=== PATIENT | male | born 1955 | race Caucasian/White ===

== ENCOUNTER 2021-12-15 08:06 | Emergency (ER) | payer MEDICARE, SELFPAY ==
[2021-12-15 08:16] VITALS: BP 220/96; PULSE 80; RESP 16; TEMP 36.9; O2SAT 97; BMI 45.9
--- NOTE | 2021-12-15 08:24 | XR_ITS ---
WS: [id number] PORTABLE CHEST HISTORY: dyspnea/cough COMPARISON: None available. Lungs are clear and well expanded. No pleural effusion or pneumothorax. Cardiac size: Mild enlargement of the cardiac silhouette. Mediastinum/Aorta: Normal mediastinum. No osseous abnormality seen. XR/XR chest 1V portable [id number] IMPRESSION: Mild cardiomegaly. No pneumonia.
--- NOTE | 2021-12-15 08:30 | ECG_ITS ---
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 Measurements Intervals [place] Rate: 74 P: 53 AR: 177 QRS: 17 QRSD: 105 T: 31 QT: 393 QTc: 438 Interpretive Statements SINUS RHYTHM LOW QRS VOLTAGE IN PRECORDIAL LEADS [QRS DEFLECTION < 1.0 mV IN CHEST LEADS] ANTEROSEPTAL MYOCARDIAL INFARCTION , PROBABLY OLD [40+ ms Q WAVE IN V1-V4] No previous ECG available for comparison Electronically Signed On 12-15-2021 21:09:51 CDT by Margaux Barnes M.D. [id number]
[2021-12-15 08:50] LABS: Basophils % 0.3 %; Eosinophils # 0.2 10^3/uL (0.0-0.8); Eosinophils % 2.3 %; Hematocrit 38.8 % (42.0-52.0); Hemoglobin 13.3 g/dL (11.7-16.6); Lymphocytes # 1.9 10^3/uL (0.8-4.8); Lymphocytes % 29.1 %; Mean Corpuscular HGB Conc 34.3 g/dL (30.0-36.0); Mean Corpuscular Hemoglobin 29.6 pg (28.0-34.0); Mean Corpuscular Volume 86.4 fl (80-94); Monocytes # 0.5 10^3/uL (0.2-0.9); Monocytes % 7.7 %; Neutrophils # 3.87 10^3/uL (1.8-7.7); Nucleated Red Blood Cells % 0 %; Platelet Count 169 10^3/cmm (130-400); Red Blood Count 4.49 10^6/uL (4.1-5.3); Red Cell Distribution Width 12.5 % (12.1-15.1); White Blood Count 6.5 10^3/uL (4.0-10.0)
[2021-12-15 08:54] VITALS: BP 239/128; PULSE 74; RESP 16; O2SAT 95
[2021-12-15 09:14] LABS: Alanine Aminotransferase 40 U/L (0-41); Alkaline Phosphatase 74 IU/L (40-130); Anion Gap 15.8 (5-19); Aspartate Amino Transferase 27 U/L (0-40); Blood Urea Nitrogen 13 mg/dL (8-23); Calcium 8.6 mg/dL (8.5-10.5); Carbon Dioxide 26 mmol/L (22-29); Chloride 102 mmol/L (98-107); Glomerular Filtration Rate 112.5 mL/min (90-130); Glucose 170 mg/dL (65-115); Osmolality Calculated 294 mOsm/kg (285-295); Potassium 3.8 mmol/L (3.5-5.1); Sodium 140 mmol/L (136-145); Total Bilirubin 0.5 mg/dL (0.15-1.2)
--- NOTE | 2021-12-15 09:17 | CT_ITS ---
WS: [id number] CTA HEAD AND NECK TECHNIQUE: Contrast enhanced CTA of the head and neck with coronal and sagittal reformatted images an d maximum intensity projection (MIP) images. NASCET criteria utilized. CLINICAL INFORMATION: TIA COMPARISON: None. DLP: 630.[address] scans at [facility] use at least one of these dose optimization techniques: automated e xposure control; mA and/or kV adjustment per patient size (includes targeted exams where dose is matc hed to clinical indication); or iterative reconstruction. FINDINGS: Some images degraded by venous contamination. RIGHT: RIGHT common carotid artery appears patent. Mild atheromatous plaque RIGHT carotid bulb. No si gnificant RIGHT ICA stenosis. RIGHT ICA appears patent to the skull base. Tortuous RIGHT ICA at the s kull base. Cavernous carotid calcification. LEFT: LEFT common carotid artery is patent. Mild atheromatous plaque LEFT carotid bulb. No significan t LEFT ICA stenosis. LEFT ICA is patent to the skull base. Mild cavernous carotid calcification. Mild narrowing of the supraclinoid ICA which remains patent. INTRACRANIAL CTA: Vertebral artery origins not well visualized due to body habitus and beam hardening artifact. RIGHT d ominant vertebral artery. Tiny LEFT vertebral artery not well evaluated. RIGHT vertebral artery is pa tent to the vertebrobasilar junction. 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 Normal vascularity to the MISSILE INSPECTOR territ ory bilaterally. Both ICAs are patent at the skull base. Mild stenosis of cervical ICA which remains patent. Normal vascularity to the SILVANO and proximal MCA territories bilaterally. No flow-limiting intr acranial stenosis considering limitations. Mastoid air cells well aerated. Mucosal thickening LEFT maxillary sinus. Mild mucosal thickening ethm oid air cells. Cardiomegaly. Atelectasis in the lung apices. Calcified granulomas LEFT upper lobe. Mo derate spondylitic changes cervical spine. Straightening of the normal cervical lordosis. CT/CT angio headneck* [id number] IMPRESSION: Exam somewhat limited due to venous contamination and beam hardenin g artifact from body habitus 1. No significant ICA stenosis bilaterally. 2. No flow-limiting intracranial stenosis. 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 3. Mild stenosis LEFT supraclinoid ICA which remains patent. 4. RIGHT dominant vertebral artery. Tiny LEFT vertebral artery not well visual ized. Notified Bird Stephenson DO at 12/15/2021 11:44 AM.
--- NOTE | 2021-12-15 09:17 | CT_ITS ---
WS: [id number] CT HEAD TECHNIQUE: Noncontrast CT of the head obtained from the skullbase to the vertex. CLINICAL INFORMATION: TIA COMPARISON: None. DLP: 1132.[address] scans at [facility] use at least one of these dose optimization techniques: automated e xposure control; mA and/or kV adjustment per patient size (includes targeted exams where dose is matc hed to clinical indication); or iterative reconstruction. FINDINGS: No evidence of intracranial hemorrhage or mass effect. Ventricular system and basal cisterns are bhagat nt. Mild small vessel changes with mild parenchymal volume loss. No extra-axial fluid collections. No evidence of mass or mass effect. Intracranial vascular calcification. Paranasal sinuses and mastoid air cells are well aerated. .Normal visualized soft tissues. CT/CT head wo con* [id number] IMPRESSION: 1. No evidence of intracranial hemorrhage or mass effect. 2. Mild small vessel changes. Mild parenchymal volume loss. 3. Intercranial vascular calcification. 4. No acute intracranial findings.
[2021-12-15] MEDS: hyDRALAzine 20 mg/mL INJ 1 mL IVP (09:30)
[2021-12-15] MEDS: labetalol 5 mg/mL SDV 20mL 10 MG IVP (09:31)
--- NOTE | 2021-12-15 09:34 | PC.PHAR ---
pt and pts states the pt takes no rx medications-states the pt only takes the otc medications entered-pt states he hasnt been to the Dr in about 11 years-pt and pts states they buy most of the supplements they take from [email or web address]
--- NOTE | 2021-12-15 10:46 | ED_ITS ---
HPI - Dizziness General: Chief Complaint: Dizziness Stated Complaint: Dizzy, high bloodpressure Time Seen by Provider: 12/15/21 08:21 Source: patient Mode of arrival: ambulatory Limitations: no limitations History of Present Illness: HPI Narrative: 56-year-old male presents emergency room complaint elevated blood pressure and dizziness. He had some difficulty with word finding this morning. He initially got up out of bed he felt like he was unsteady on his feet attempted to go to the bathroom. He also noticed some difficulty with word finding but he did not seem to be slurring his speech according to his . The word finding issue is usually not a problem for him. He went back and sat in a chair for period time and slept for an hour or 2 and then got up and had similar symptoms although that unsteadiness on his feet had improved. Patient has known history hyp ertension is very poorly controlled today. He has no known history of heart disease no previous strokes not diabetic as far as he is aware. However he does readily admit he usually does not see physicians on a regular basis. MD elicited complaint: dizziness and lightheadedness Onset (ago): hour(s) Timing: awoke with symptoms Severity: mild Description: sense of movement and off-balance Exacerbating factors: nothing Relieving factors: nothing Associated symptoms: Denies change in hearing, chest pain, chills, cough, diaphoresis, ear discharge, ear pressure, fevers/chills, headache(s), malaise, nausea, nasal congestion, palpitations, rash, short of breath, syncope, t innitus, vomiting or weakness Associated neuro symptoms: Reports difficulty speaking ( difficulty); Deny confusion, dysphagia, diplopia, extremity weakness, facial numbness, facial weakness, gait changes, numbness in extremities or visual changes Review of Systems Const: Denies: fever(s), chills, fatigue, malaise or diaphoresis ENMT: Denies: throat pain, ear discharge, change in hearing, tinnitus or nasal congestion Card: Denies: chest pain, palpitations or syncope Resp: Denies: dyspnea, productive cough or non-productive cough GI: Denies: abdominal pain, nausea, vomiting or dysphagia : Denies: flank pain, difficulty urinating, dysuria, urinary frequency or urinary urgency Skin/Breast: Denies: rash or pruritus Neuro: Denies: headache(s), numbness in extremities or confusion PFS ED PFSH: Medical History (Updated 12/17/21 @ 07:55 by Bird Stephenson DO) HTN (hypertension) Social History (Updated 12/17/21 @ 07:55 by Bird Stephenson DO) Smoking and tobacco status: never smoked Alcohol intake: never Physical Exam Const: COMMON NORMALS: no acute distress GENERAL APPEARANCE: cooperative and comfortable ORIENTATION/CONSCIOUSNESS: Yes awake, Yes oriented to person, Yes oriented to place and Yes oriented to time HENMT: COMMON NORMALS: normocephalic, atraumatic, hearing grossly normal bilaterally, external ears normal, EAC's normal, TM's normal bilaterally, Normal nasal mucous membranes and turbinates present, moist oral mucous membranes and oropharynx normal HEAD & SCALP: normocephalic and atraumatic NOSE: Normal nasal mucous membranes and turbinates present EXTERNAL EAR: Yes external ears normal EXTERNAL AUDITORY CANAL: EAC's normal TYMPANIC MEMBRANE: TM's normal bilaterally Eye: COMMON NORMALS: Equal, round and reactive pupils present, EOMs intact bilaterally, conjunctivae normal and no scleral icterus CONJUNCTIVA: Yes conjunctivae normal PUPIL: Yes Equal, round and reactive pupils present Neck/C-Spine: COMMON NORMALS: full ROM, no lymphadenopathy, supple and no JVD Resp: COMMON NORMALS: normal respiratory effort, No retractions, No use of accessory muscles and clear to auscultation bilaterally AUSCULTATION: clear to auscultation bilaterally Cardio: COMMON NORMALS: no JVD, regular rate, regular rhythm and No murmurs present (Cardio) RATE: regular rate RHYTHM: regular rhythm GI: COMMON NORMALS: Soft to palpation and No hepatosplenomegaly present AUSCULTATION: Yes normoactive bowel sounds PALPATION: Yes Soft to palpation, No Tenderness to palpation present (GI), No Guarding due to palpation present (GI) and Yes No hepatosplenomegaly present Extremity: COMMON NORMALS: normal to inspection, capillary refill normal, no clubbing, cyanosis or edema, no calf tenderness and no pedal edema Neuro: SENSORIUM/ORIENTATION: Yes oriented to person, Yes oriented to place and Yes oriented to time Skin: COMMON NORMALS: no rashes or lesions noted GENERAL SKIN EXAM: no rashes or lesions noted Course Vital Signs: Vital signs: Vital Signs Temperature 98.5 F 12/15/21 08:16 Pulse Rate 76 12/15/21 12:54 Respiratory Rate 17 12/15/21 12:54 Blood Pressure 190/97 12/15/21 12:54 Pulse Oximetry 96 12/15/21 12:54 Oxygen Delivery Me thod 12/15/21 12:53 MDM - Dizziness Medical Decision Making Patient has a NIH score of 0 he does have a little bit of difficulty with word finding. CT and CTA of the head were negative. Blood pressure improved. Discussed different options with him as not really much at this point we do on the inpatient side we do need to keep his blood pressure controlled his only symptom really was word finding a little lightheaded and dizziness unsteadiness on his feet immediately after he got up this morning but that is resolved resolved within a brief time period of its onset suspect it may have just been postural change. At this point we will recommend starting aspirin Plavix for dual platelet therapy and also starting atorvastatin in addition to that we will start him on amlodipine, lisinopril and low-dose metoprolol. Discussed with him that these will likely need to be titrated to achieve adequate blood pressure control but for now can begin with this. We will get him set up with neurology set him up for an outpatient MRI as well as an outpatient echocardiogram. Return if he has further problems. Medical Records I reviewed the patient's medical records. Lab Data I reviewed the patient's lab results. : 12/15/21 08:40 12/15/21 08:40 Radiology Impressions Chest X-Ray 12/15/21 08:24 IMPRESSION: Mild cardiomegaly. No pneumonia. Head CT 12/15/21 09:17 IMPRESSION: 1. No evidence of intracranial hemorrhage or mass effect. 2. Mild small vessel changes. Mild parenchymal volume loss. 3. Intercranial vascular calcification. 4. No acute intracranial findings. Head/Neck CTA 12/15/21 09:17 IMPRESSION: Exam somewhat limited due to venous contamination and beam hardening artifact from body habitus 1. No significant ICA stenosis bilaterally. 2. No flow-limiting intracranial stenosis. 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 3. Mild stenosis LEFT supraclinoid ICA which remains patent. 4. RIGHT dominant vertebral artery. Tiny LEFT vertebral artery not well visualized. Notified Bird Stephenson DO at 12/15/2021 11:44 AM. Laboratory Results WBC 6.5 10^3/uL (4.0-10.0) 12/15/21 08:40 RBC 4.49 10^6/uL (4.1-5.3) 12/15/21 08:40 Hgb 13.3 g/dL (11.7-16.6) 12/15/21 08:40 Hct 38.8 % (42.0-52.0) L 12/15/21 08:40 MCV 86.4 fl (80-94) 12/15/21 08:40 MCH 29.6 pg (28.0-34.0) 12/15/21 08:40 MCHC 34.3 g/dL (30.0-36.0) 12/15/21 08:40 RDW 12.5 % (12.1-15.1) 12/15/21 08:40 Plt Count 169 10^3/cmm (130-400) 12/15/21 08:40 MPV 10.0 fL (7.4-10.4) 12/15/21 08:40 Neut % (Auto) 60.0 % 12/15/21 08:40 Lymph % (Auto) 29.1 % 12/15/21 08:40 Mckean % (Auto) 7.7 % 12/15/21 08:40 Eos % (Auto) 2.3 % 12/15/21 08:40 Baso % (Auto) 0.3 % 12/15/21 08:40 Neut # (Auto) 3.87 10^3/uL (1.8-7.7) 12/15/21 08:40 Lymph # (Auto) 1.9 10^3/uL (0.8-4.8) 12/15/21 08:40 Mckean # (Auto) 0.5 10^3/uL (0.2-0.9) 12/15/21 08:40 Eos # (Auto) 0.2 10^3/uL (0.0-0.8) 12/15/21 08:40 Baso # (Auto) 0.0 10^3/uL (0.0-0.1) 12/15/21 08:40 Nucleated RBC % (auto) 0 % 12/15/21 08:40 Nucleated RBCs # 0.0 /100WBC 12/15/21 08:40 Sodium 140 mmol/L (136-145) 12/15/21 08:40 Potassium 3.8 mmol/L (3.5-5.1) 12/15/21 08:40 Chloride 102 mmol/L (98-107) 12/15/21 08:40 Carbon Dioxide 26 mmol/L (22-29) 12/15/21 08:40 Anion Gap 15.8 (5-19) 12/15/21 08:40 BUN 13 mg/dL (8-23) 12/15/21 08:40 Creatinine 0.7 mg/dL (0.7-1.2) 12/15/21 08:40 GFR Calculation 112.5 mL/min (90-130) 12/15/21 08:40 Glucose 170 mg/dL (65-115) H 12/15/21 08:40 Calculated Osmolality 294 mOsm/kg (285-295) 12/15/21 08:40 Calcium 8.6 mg/dL (8.5-10.5) 12/15/21 08:40 Total Bilirubin 0.5 mg/dL (0.15-1.2) 12/15/21 08:40 AST 27 U/L (0-40) 12/15/21 08:40 ALT 40 U/L (0-41) 12/15/21 08:40 Alkaline Phosphatase 74 IU/L (40-130) 12/15/21 08:40 Total Protein 7.0 g/dL (6.6-8.7) 12/15/21 08:40 Albumin 4.0 g/dL (3.5-5.2) 12/15/21 08:40 Globulin 3.0 g/dL (1.3-4.6) 12/15/21 08:40 Discharge Plan Discharge Patient Disposition: Home Clinical Impression: Transient cerebral ischemia, HTN (hypertension) Condition: Stable Prescriptions: New atorvastatin 40 mg tablet 40 mg PO DAILY Qty: 30 0RF clopidogrel 75 mg tablet 75 mg PO DAILY Qty: 30 0RF aspirin 81 mg tablet,delayed release (DR/EC) 81 mg PO DAILY Qty: 30 0RF amlodipine 5 mg tablet 5 mg PO DAILY Qty: 30 0RF lisinopril 10 mg tablet 10 mg PO BID Qty: 60 0RF Toprol XL 25 mg tablet extended release 24 hr 12.5 mg PO DAILY Qty: 30 0RF No Action Vitamin B-12 500 mcg Tablet 500 mcg PO DAILY Vitamin C 500 mg Tablet 500 mg PO DAILY ibuprofen 200 mg Tablet 800 mg PO Q6H PRN (Reason: Pain) [id number] 333-133-5 mg Tablet 1 tab PO DAILY Daily Build 1 tab PO DAILY Goyin Juice 1 oz PO DAILY Immune+ Tabs 1 tab PO DAILY Mangosteen Juice 1 oz PO DAILY Metabolic One 1 cap PO DAILY Discharge Orders: Discharge ED (Routine); Ordered 12/15/21 Ordered By: Bird Stephenson Discharge Diet: Usual diet Discharge Activity: Increase activity as tolerated Patient Instructions: Opioid Safety Activity Restrictions/Additional Instructions: human resources training manager will make arrangements for you to have an MRI of the head and follow-up with neurology. In addition to this would recommend that you follow- up with your primary care doctor within the next week to reevaluate your blood pressure if you have any worsening or change of symptoms return to the emergency room. Coding Level of Care Code ED Resource Manager Forester for Queenie Mishra NIH stroke score NIHSS Level Of Consciousness - 1a: 0 Level Of Consciousness Questions - 1b: Both Correct Level Of Consciousness Commands - 1c: Both Correct Best Gaze - 2: Normal Visual Harding - 3: No Visual Loss Facial Palsy - 4: Normal Motor Arm Right - 5: No Drift Motor Arm Left - 5: No Drift Motor Leg Right - 6: No Drift Motor Leg Left - 6: No Drift Limb Ataxia - 7: Absent Sensory - 8: Normal Best Language - 9: No Aphasia Dysarthia - 10: Normal Extinction And Inattention - 11: 0 Score Total Score: 0
[2021-12-15 11:02] VITALS: BP 207/94; PULSE 91; RESP 16; O2SAT 99
[2021-12-15 12:24] VITALS: BP 182/80; PULSE 79; RESP 20; O2SAT 97
[2021-12-15 12:53] VITALS: BP 190/97; PULSE 76; RESP 17; O2SAT 96
[2021-12-15 12:54] VITALS: BP 190/97; PULSE 76; RESP 17; O2SAT 96
== END 2021-12-15 12:55 | disposition home or self-care (01) ==
PROVIDERS: Emergency Provider Family Medicine
DX: I10 Essential (primary) hypertension (principal); G45.9 Transient cerebral ischemic attack, unspecified
CPT/HCPCS: 70450; 70496; 70498; 71045; 80053; 85025; 93005; 96374; 96375; 99285; J0360; J3490

== ENCOUNTER 2021-12-17 07:47 | Inpatient (IN) | payer MEDICARE, SELFPAY ==
[2021-12-17] VITALS (53 sets, daily range): BP systolic 148–234; BP diastolic 68–113; PULSE 60–89; RESP 12–24; TEMP 36.6–37; O2SAT 94–98; BMI 47.3
--- NOTE | 2021-12-17 07:52 | ECG_ITS ---
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 Measurements Intervals [place] Rate: 75 P: 53 CT: 180 QRS: 1 QRSD: 100 T: -4 QT: 394 QTc: 441 Interpretive Statements SINUS RHYTHM LOW QRS VOLTAGE IN PRECORDIAL LEADS [QRS DEFLECTION < 1.0 mV IN CHEST LEADS] SEPTAL MYOCARDIAL INFARCTION , PROBABLY OLD [40+ ms Q WAVE IN V1/V2] Compared to ECG 12/15/2021 08:30:54 No significant changes Electronically Signed On 12-17-2021 14:24:02 CDT by Flaco Dwyer M.D. [id number]
[2021-12-17 08:12] LABS: Basophils # 0.1 10^3/uL (0.0-0.1); Basophils % 0.7 %; Eosinophils # 0.1 10^3/uL (0.0-0.8); Hematocrit 42.1 % (42.0-52.0); Hemoglobin 14.3 g/dL (11.7-16.6); Lymphocytes % 28.7 %; Mean Corpuscular Hemoglobin 29.6 pg (28.0-34.0); Mean Corpuscular Volume 87.2 fl (80-94); Mean Platelet Volume 10.4 fL (7.4-10.4); Monocytes # 0.6 10^3/uL (0.2-0.9); Monocytes % 9.2 %; Neutrophils # 4.05 10^3/uL (1.8-7.7); Neutrophils % 58.3 %; Nucleated Red Blood Cells % 0 %; Platelet Count 194 10^3/cmm (130-400); Red Blood Count 4.83 10^6/uL (4.1-5.3); Red Cell Distribution Width 12.9 % (12.1-15.1)
--- NOTE | 2021-12-17 08:26 | CT_ITS ---
WS: [id number] CT scan of the head, 12/17/2021 Clinical Data: CVA Comparison: CT head, 12/15/2021. DLP: 1106.[address] scans at [facility] use at least one of these dose optimization techniques: automated e xposure control; mA and/or kV adjustment per patient size (includes targeted exams where dose is matc hed to clinical indication); or iterative reconstruction. Findings: The ventricular system is normal without shift. No recent infarct or hemorrhage is seen. There are no abnormal intracerebral masses. The cerebellum and brainstem are not remarkable. Bony windows of the skull and skull base show no fractures or erosions. The mastoid air cells, risk management intern al auditory canals, sella turcica, intraorbital contents, and paranasal sinuses are unremarkable. CT/CT head wo con* [id number] Impression: Negative CT scan of the head
--- NOTE | 2021-12-17 08:27 | W.ED.GENADLT ---
HPI - General Adult General: Chief complaint: General Medical Stated complaint: GENERALIZED WEAKNESS Time Seen by Provider: 12/17/21 07:51 Source: patient Mode of arrival: ambulatory Limitations: no limitations History of Present Illness: 66-year-old male with a history of hypertension. He presents morning with weakness difficulty walking and slurring of his speech and dysarthria with his right hand. He was seen here 2 days ago when he had wake-up symptoms of word finding difficulty. He was extremely hypertensive when he arrived had not been taking any medications his blood pressure was treated and he had a CT head and a CTA head and neck all of which were unremarkable. He was started on 3 medications metoprolol lisinopril and amlodipine for his blood pressure, statin and dual platelet therapy. The time his work-up was completed he was essentially completely asymptomatic his blood pressure had improved was not to goal but adequate for discharge. Discussed with him that we did not wanted to lower his blood pressure too much in the setting of a concern for TIA. But at time of discharge all of his symptoms had resolved. We discharged him home with plan for an outpatient MRI of the head and echocardiogram. This morning patient woke up now he is having some slurring of his words as well as some word finding difficulty and new symptoms of dysarthria with the right arm and a slight right-sided lower facial droop. He is also noticed weakness and dizziness he had a difficult time standing he has bilateral lower extremity weakness. His exam today is significantly different from previous. He denies any chest pain. Is been no trauma. He has not taken his morning blood pressure medications but he has been taking them otherwise since he was discharged including his dual platelet therapy and statin. His symptoms this morning were present when he awoke and his last known well would be were approximately 930 last evening. Onset (ago): hour(s) Severity: moderate Relieving factors: other (Patient notes he is slightly better when lying down supine) Exacerbating factors: none Associated symptoms: Reports weakness; Deny chest pain, confusion, cough, diaphoresis, decreased appetite, dyspnea, fevers/chills, headache(s), malaise, nausea, rash, palpitations, seizures, short of breath, syncope or vomiting Review of Systems Const: Reports: fatigue; Denies: fever(s), chills, malaise or diaphoresis ENMT: Denies: throat pain, ear or mastoid pain, nasal discharge or nasal congestion Card: Denies: chest pain, palpitations or syncope Resp: Denies: dyspnea GI: Denies: abdominal pain, nausea or vomiting : Denies: flank pain, difficulty urinating, dysuria, urinary frequency or urinary urgency Skin/Breast: Denies: rash Neuro: Denies: headache(s) or confusion PFSH ED PFSH: Medical History HTN (hypertension) Morbid obesity Surgical History History of cholecystectomy Social History (Updated 12/17/21 @ 11:31 by Tiago German MD) Smoking and tobacco status: never smoked Alcohol intake: former Substance/Drug Use: never Physical Exam Const: COMMON NORMALS: no acute distress GENERAL APPEARANCE: cooperative and comfortable ORIENTATION/CONSCIOUSNESS: Yes awake, Yes oriented to person, Yes oriented to place and Yes oriented to time HENMT: COMMON NORMALS: normocephalic, atraumatic and hearing grossly normal bilaterally HEAD & SCALP: normocephalic and atraumatic Eye: COMMON NORMALS: Equal, round and reactive pupils present, EOMs intact bilaterally, conjunctivae normal and no scleral icterus CONJUNCTIVA: Yes conjunctivae normal PUPIL: Yes Equal, round and reactive pupils present Neck/C-Spine: COMMON NORMALS: full ROM, no lymphadenopathy, supple and no JVD Resp: COMMON NORMALS: normal respiratory effort, No retractions, No use of accessory muscles and clear to auscultation bilaterally AUSCULTATION: clear to auscultation bilaterally Cardio: COMMON NORMALS: no JVD, regular rate, regular rhythm and No murmurs present (Cardio) RATE: regular rate RHYTHM: regular rhythm GI: COMMON NORMALS: Soft to palpation and No hepatosplenomegaly present AUSCULTATION: Yes normoactive bowel sounds PALPATION: Yes Soft to palpation, No Tenderness to palpation present (GI), No Guarding due to palpation present (GI) and Yes No hepatosplenomegaly present Extremity: COMMON NORMALS: normal to inspection, capillary refill normal, no clubbing, cyanosis or edema, no calf tenderness and no pedal edema Neuro: SENSORIUM/ORIENTATION: Yes oriented to person, Yes oriented to place and Yes oriented to time Skin: COMMON NORMALS: no rashes or lesions noted GENERAL SKIN EXAM: no rashes or lesions noted Course Vital Signs: Vital signs: Vital Signs Temperature 97.9 F 12/17/21 07:50 Pulse Rate 87 12/17/21 13:05 Respiratory Rate 23 H 12/17/21 13:05 Blood Pressure 190/92 12/17/21 13:05 Pulse Oximetry 97 12/17/21 13:05 Oxygen Delivery Me thod 12/17/21 11:30 MDM - General Adult Medical Decision Making Patient has poorly controlled hypertension slightly worse this morning because he has not taken his medications. Additionally he has new findings that he did not have at his previous visit he did not have the slight facial droop he has on the right and while he had some word finding difficulty did not have any slurring of his speech he definitely has that this morning in comparison to when I seen him last time additionally he has a very subtle right arm pronator drift. His weakness bilaterally in his lower extremities difficult to assess if there is anything differential from left to the right in that regard. Patient will be admitted to the hospital for further evaluation and secondary prevention. I did not repeat his CTA of his head and neck his stroke score at best is 4 so would not be a candidate for embolectomy he is out of the timeframe for thrombolytics. Medical Records I reviewed the patient's medical records. Lab Data I reviewed the patient's lab results. : 12/17/21 07:30 12/17/21 07:[address] 12/17/21 08:26 Impression: Negative CT scan of the head Laboratory Results WBC 7.0 10^3/uL (4.0-10.0) 12/17/21 07:30 RBC 4.83 10^6/uL (4.1-5.3) 12/17/21 07:30 Hgb 14.3 g/dL (11.7-16.6) 12/17/21 07:30 Hct 42.1 % (42.0-52.0) 12/17/21 07:30 MCV 87.2 fl (80-94) 12/17/21 07:30 MCH 29.6 pg (28.0-34.0) 12/17/21 07:30 MCHC 34.0 g/dL (30.0-36.0) 12/17/21 07:30 RDW 12.9 % (12.1-15.1) 12/17/21 07:30 Plt Count 194 10^3/cmm (130-400) 12/17/21 07:30 MPV 10.4 fL (7.4-10.4) 12/17/21 07:30 Neut % (Auto) 58.3 % 12/17/21 07:30 Lymph % (Auto) 28.7 % 12/17/21 07:30 [place] % (Auto) 9.2 % 12/17/21 07:30 Eos % (Auto) 2.0 % 12/17/21 07:30 Baso % (Auto) 0.7 % 12/17/21 07:30 Neut # (Auto) 4.05 10^3/uL (1.8-7.7) 12/17/21 07:30 Lymph # (Auto) 2.0 10^3/uL (0.8-4.8) 12/17/21 07:30 [place] # (Auto) 0.6 10^3/uL (0.2-0.9) 12/17/21 07:30 Eos # (Auto) 0.1 10^3/uL (0.0-0.8) 12/17/21 07:30 Baso # (Auto) 0.1 10^3/uL (0.0-0.1) 12/17/21 07:30 Nucleated RBC % (auto) 0 % 12/17/21 07: Nucleated RBCs # 0.0 /100WBC 12/17/21 07:30 Sodium 140 mmol/L (136-145) 12/17/21 07:30 Potassium 3.6 mmol/L (3.5-5.1) 12/17/21 07:30 Chloride 102 mmol/L (98-107) 12/17/21 07:30 Carbon Dioxide 26 mmol/L (22-29) 12/17/21 07:30 Anion Gap 15.6 (5-19) 12/17/21 07:30 BUN 17 mg/dL (8-23) 12/17/21 07:30 Creatinine 0.8 mg/dL (0.7-1.2) 12/17/21 07:30 GFR Calculation 96.4 mL/min (90-130) 12/17/21 07:30 Glucose 166 mg/dL (65-115) H 12/17/21 07:30 Estimat Average Glucose 114 12/17/21 07:30 Hemoglobin A1c 5.6 % (4.0-6.0) 12/17/21 07:30 Calculated Osmolality 295 mOsm/kg (285-295) 12/17/21 07:30 Calcium 9.0 mg/dL (8.5-10.5) 12/17/21 07:30 Total Bilirubin 0.5 mg/dL (0.15-1.2) 12/17/21 07:30 AST 23 U/L (0-40) 12/17/21 07:30 ALT 33 U/L (0-41) 12/17/21 07:30 Alkaline Phosphatase 77 IU/L (40-130) 12/17/21 07:30 Total Protein 7.2 g/dL (6.6-8.7) 12/17/21 07:30 Albumin 4.4 g/dL (3.5-5.2) 12/17/21 07:30 Globulin 2.8 g/dL (1.3-4.6) 12/17/21 07:30 TSH 23.25 uIU/mL (0.27-4.20) H 12/17/21 07:30 Free T4 0.79 ng/dL (0.82-1.77) L 12/17/21 07:30 Free T3 3.1 PG/ML (2.0-4.4) 12/17/21 07:30 Urine Color Yellow (Yellow) 12/17/21 10:50 Urine Appearance Clear (CLEAR) 12/17/21 10:50 Urine pH 5 (5-7) 12/17/21 10:50 Ur Specific [place] 1.020 (1.005-1.030) 12/17/21 10:50 Urine Protein Neg (Negative) 12/17/21 10:50 Urine Glucose (UA) Norm (Normal) 12/17/21 10:50 Urine Ketones Negative (Negative) 12/17/21 10:50 Urine Blood Neg (Negative) 12/17/21 10:50 Urine Nitrate Negative (Negative) 12/17/21 10:50 Urine Bilirubin Neg (Negative) 12/17/21 10:50 Urine Urobilinogen Norm mg/dL (Negative) 12/17/21 10:50 Ur Leukocyte Esterase Negative (Negative) 12/17/21 10:50 Discharge Plan Discharge Patient Disposition: Admitted As Inpatient Clinical Impression: Acute CVA (cerebrovascular accident), HTN (hypertension) Condition: Stable Coding Level of Care Code ED Certified Breastfeeding Educator for Aveg Fwd Exam Comprehensive NIH stroke score NIHSS Level Of Consciousness - 1a: 0 Level Of Consciousness Questions - 1b: Both Correct Level Of Consciousness Commands - 1c: Both Correct Best Gaze - 2: Normal Visual [place] - 3: No Visual Loss Facial Palsy - 4: Minor Paralysis Motor Arm Right - 5: Drift Motor Arm Left - 5: No Drift Motor Leg Right - 6: No Drift Motor Leg Left - 6: No Drift Limb Ataxia - 7: Present In One Limb Sensory - 8: Normal Best Language - 9: No Aphasia Dysarthia - 10: Mild/Moderate Dysarthia Extinction And Inattention - 11: 0 Score Total Score: 4
[2021-12-17] MEDS: labetalol 5 mg/mL SDV 20mL 10 MG IVP ×2 (08:30→11:52)
[2021-12-17] MEDS: amlodipine 10 mg Tablet PO (08:30)
[2021-12-17] MEDS: metoprolol succinate ER (24 HR) 25 mg Tablet PO (08:30)
[2021-12-17] MEDS: lisinopril 20 mg Tablet PO (08:30)
--- NOTE | 2021-12-17 08:34 | PC.PHAR ---
PT STATES NO CHANGES IN MEDICATIONS, ALLERGIES, OR PHARMACY SINCE LAST VISIT ON 12/15/21
[2021-12-17 08:47] LABS: Alanine Aminotransferase 33 U/L (0-41); Albumin Level 4.4 g/dL (3.5-5.2); Alkaline Phosphatase 77 IU/L (40-130); Anion Gap 15.6 (5-19); Aspartate Amino Transferase 23 U/L (0-40); Blood Urea Nitrogen 17 mg/dL (8-23); Carbon Dioxide 26 mmol/L (22-29); Chloride 102 mmol/L (98-107); Globulin 2.8 g/dL (1.3-4.6); Glomerular Filtration Rate 96.4 mL/min (90-130); Glucose 166 mg/dL (65-115); Osmolality Calculated 295 mOsm/kg (285-295); Potassium 3.6 mmol/L (3.5-5.1); Sodium 140 mmol/L (136-145); Total Bilirubin 0.5 mg/dL (0.15-1.2); Total Protein 7.2 g/dL (6.6-8.7)
[2021-12-17 11:01] LABS: Estmated Average Glucose 114; Hemoglobin A1C 5.6 % (4.0-6.0)
[2021-12-17 11:14] LABS: Thyroid Stimulating Hormone 23.25 uIU/mL (0.27-4.20)
--- NOTE | 2021-12-17 11:25 | P.HP_ITS ---
Providers/Chief Complaint Admitting Physician: Tiago Samson Primary Care Provider: ANETTE Lora Chief Complaint: GENERALIZED WEAKNESS History of Present Illness Dev Bess is a 66 year old male to the hospital with some waxing and waning neurologic symptoms. He reports symptoms first started on Tuesday, and was associated with some slurring of his speech, word finding difficulty, and some difficulty ambulating. He thinks he was more weak on the right side. E mergency department, where blood pressure was noted to be significantly elevated. Stroke scale was done at that time, and the patient appears to be improved at that time with a stroke scale of 0. A CT was done which was negative other than mild small vessel disease changes and some calcification. Head neck CTA demonstrated no significant ICA stenosis bilaterally. A persistent left HEAD UP OPERATOR HELPER was noted. Mild stenosis of left supraclinoid ICA which remained patent and a right dominant vertebral artery with teeny left vertebral artery that was not well visualized. He was given medication for blood pressure control, Plavix, aspirin, and arrangements for follow-up with neurology were made. He did well rested Tuesday until Tuesday night, when symptoms recurred and he had some trouble walking. He ultimately fell in the bathroom and had to be helped up by the ambulance service. He then went to sleep that night and was better Tuesday. Speech was much less slurred and he felt stronger. Tuesday night he had recurrent symptoms of slurred speech, right facial droop, weakness right upper and right lower extremity. He reports he is now again improved from last night and was able to get up with minimal assistance. He denies any difficulty swallowing. He has not been ill lately. He denies any headache, nausea, vomiting, current dizziness, difficulty with vision. He reports he has no medical problems, but cannot really be sure as he has not seen a physician in over 11 years. After his hospital stay he did take medicine as prescribed by the physician but really is only been able to have 1 dose of Plavix and aspirin, yesterday. In the emergency department he has received some amlodipine, labetalol, lisinopril, and a dose of metoprolol. Review of Systems General: Reports: 10 or more systems reviewed and unremarkable except in HPI and below Const: Denies: fever(s) or chills Eyes: Denies: change in vision ENMT: Denies: throat pain Card: Denies: chest pain Resp: Denies: dyspnea GI: Denies: abdominal pain, nausea or vomiting Musc: Reports: limited range of motion and muscle weakness Skin/Breast: Denies: rash Neuro: Reports: weakness in extremities, difficulty walking and Slurred speech present; Denies: headache(s) Psych: Denies: anxiety or depression Endo: Denies: polyuria Rafael/Lymph: Denies: easy bruising All/Imm: Denies: urticaria Medications/Allergies Home Medications Medication Instructions Recorded Confirmed Last Taken Type Daily Build 1 tab PO DAILY 12/15/21 12/17/21 12/16/21 History Goyin Juice 1 oz PO DAILY 12/15/21 12/17/21 12/16/21 History Immune+ Tabs 1 tab PO DAILY 12/15/21 12/17/21 12/16/21 History Mangosteen Juice 1 oz PO DAILY 12/15/21 12/17/21 12/16/21 History Metabolic One 1 cap PO DAILY 12/15/21 12/17/21 12/16/21 History amlodipine 5 mg tablet 5 mg PO DAILY #30 tabs 12/15/21 12/17/21 12/16/21 Rx ascorbic acid (vitamin C) 500 mg 500 mg PO DAILY 12/15/21 12/17/21 12/16/21 History tablet (Vitamin C) aspirin 81 mg tablet,delayed 81 mg PO DAILY #30 tabs 12/15/21 12/17/21 12/16/21 Rx release atorvastatin 40 mg tablet 40 mg PO DAILY #30 tabs 12/15/21 12/17/21 12/16/21 Rx pqpqomb-alycxoxko-ekqb 333 mg-133 1 tab PO DAILY 12/15/21 12/17/21 12/16/21 History mg-5 mg tablet clopidogrel 75 mg tablet 75 mg PO DAILY #30 tabs 12/15/21 12/17/21 12/16/21 Rx cyanocobalamin (vitamin B-12) 500 500 mcg PO DAILY 12/15/21 12/17/21 12/16/21 History mcg tablet (Vitamin B-12) ibuprofen 200 mg tablet 800 mg PO Q6H PRN Pain 12/15/21 12/17/21 12/14/21 22:00 History lisinopril 10 mg tablet 10 mg PO BID #60 tabs 12/15/21 12/17/21 12/16/21 Rx metoprolol succinate 25 mg 12.5 mg PO DAILY #30 tabs 12/15/21 12/17/21 12/16/21 Rx tablet,extended release 24 hr (Toprol XL) Allergies Allergy/AdvReac Type Severity Reaction Status Date / Time No Known Allergies Allergy Verified 12/17/21 08:32 PFSH Acute PFSH: Medical History HTN (hypertension) Morbid obesity Surgical History History of cholecystectomy Social History (Updated 12/17/21 @ 11:31 by Tiago German MD) Smoking and tobacco status: never smoked Alcohol intake: former Substance/Drug Use: never Other PFSH information: Supplemental PFSH Information: He is adopted and knows no family history. Vitals/I&O/Wt Last Vital Signs Temp 97.9 F 12/17/21 07:50 Pulse 60 12/17/21 09:30 Resp 20 H 12/17/21 08:30 BP 210/113 12/17/21 09:30 Pulse Ox 94 12/17/21 09:30 O2 Del Method 12/17/21 09:30 Weight last 48 hrs Weight 149.685 kg Physical Exam Narrative: Is a white male, with slurred speech, in no apparent distress. No obvious word finding difficulty during my exam. Neurologic: Right facial droop is apparent. Bedside swallow demonstrates no aspiration or difficulty with a small amount of water. Right upper extremity strength is 5/6. Right lower extremity strength 4-5/6. Stroke scale is 4 HEENT: Pupils equally round. Oropharynx clear. Neck is supple no lymphadenopathy thyromegaly Cardiovascular regular rate and rhythm, no murmur Lungs clear no wheezing or crackles Abdomen is soft nontender positive bowel sounds. No obvious organomegaly exams deferred Extremities no cyanosis clubbing or edema, cap refill brisk Skin no rash Data : 12/17/21 07:30 12/17/21 07:30 Other Labs: LFTs are normal Urinalysis ordered and pending CT head no acute changes. Please see CTA results, as documented in the history of present illness Recent chest x-ray negative on December 15 J demonstrates sinus rhythm, normal axis, small Q waves V1 through V3 A&P Assessment and plan (1) Acute CVA (cerebrovascular accident): Acute CVA, with symptoms of right facial droop, word finding difficulty, slurred speech, right upper and right lower extremity weakness. Initiate statin Plavix, aspirin CTA been performed Echocardiogram Telemetry Arrange for MRI Permissive hypertension. Hydration Therapy consultations Status: Acute (2) HTN (hypertension): Allow for permissive hypertension. Consider chronicity of symptoms, will initiate 5 mg of Norvasc daily. Is already is received quite a bit of medication through the emergency department. Status: Acute (3) Hyperglycemia: Arrange for consistent carb diet Check hemoglobin A1c Check TSH Status: Acute Plan Morbid obesity. High probability of sleep apnea. We will arrange outpatient follow-up. Full code Lovenox for DVT prophylaxis Attestations Medical Necessity Statement*: Will need greater than 2 midnight stay for evaluation and treatment of stroke with impaired mobility Coding Level of Care Code Acute Office Technology Instructor for [facility] Tad Diagnoses Acute CVA (cerebrovascular accident) I63.9 HTN (hypertension) I10 Hyperglycemia R73.9
[2021-12-17 11:43] LABS: Add Urine Microscopic? NO; Charge for UA Resulting for Rev
[2021-12-17 11:45] LABS: Urine Appearance Clear (CLEAR); Urine Color Yellow (Yellow)
[2021-12-17 11:46] LABS: Bilirubin Urine Neg (Negative); Blood Urine Neg (Negative); Glucose Urine UA Norm (Normal); Ketones Urine Negative (Negative); Leukocyte Esterase Urine Negative (Negative); Nitrate Urine Negative (Negative); Protein Urine Neg (Negative); Urobilinogen Urine Norm (Negative); pH Urine 5 (5-7)
[2021-12-17 11:49] LABS: Free T4 Free Thyroxine 0.79 ng/dL (0.82-1.77); T3 Free 3.1 PG/ML (2.0-4.4)
[2021-12-17] MEDS: hyDRALAzine 20 mg/mL INJ 1 mL 10 MG IVP (11:52)
[2021-12-17] MEDS: aspirin 325 mg EC Tablet PO (12:59)
[2021-12-17] MEDS: sodium chloride 0.9% 1,000 ML 75 ML IV (12:59)
[2021-12-17] MEDS: enoxaparin 40 mg/0.4 mL Syringe SUBCUT (12:59)
[2021-12-17] MEDS: clopidogrel 75 mg Tablet PO (12:59)
--- NOTE | 2021-12-17 14:57 | PC.OT ---
OT EVALUATION ORDERS RECEIVED. PER VITALS: AT 1200 BP 219/105 AT [id number] AND RESPIRATORY RATE IS 23H. WILL HOLD EVALUATION TODAY CONTRAINDICATED PER VITALS.
[2021-12-17] MEDS: acetaminophen 325 mg Tablet 650 MG PO (18:45)
[2021-12-17] MEDS: atorvastatin 40 mg Tablet PO (21:59)
[2021-12-18] MEDS: sodium chloride 0.9% 1,000 ML 75 ML IV (02:16)
[2021-12-18 03:04] LABS: Basophils # 0.1 10^3/uL (0.0-0.1); Basophils % 0.7 %; Eosinophils # 0.2 10^3/uL (0.0-0.8); Eosinophils % 2.4 %; Hemoglobin 13.8 g/dL (11.7-16.6); Lymphocytes # 1.8 10^3/uL (0.8-4.8); Lymphocytes % 23.7 %; Mean Corpuscular HGB Conc 31.4 g/dL (30.0-36.0); Mean Corpuscular Hemoglobin 29.2 pg (28.0-34.0); Mean Corpuscular Volume 93.2 fl (80-94); Monocytes # 0.8 10^3/uL (0.2-0.9); Neutrophils # 4.75 10^3/uL (1.8-7.7); Neutrophils % 62.5 %; Nucleated Red Blood Cells % 0 %; Platelet Count 182 10^3/cmm (130-400); Red Blood Count 4.72 10^6/uL (4.1-5.3); Red Cell Distribution Width 12.9 % (12.1-15.1); White Blood Count 7.6 10^3/uL (4.0-10.0)
[2021-12-18 03:19] LABS: Estmated Average Glucose 114; Hemoglobin A1C 5.6 % (4.0-6.0)
[2021-12-18 03:30] LABS: Anion Gap 13.5 (5-19); Blood Urea Nitrogen 14 mg/dL (8-23); Calcium 8.5 mg/dL (8.5-10.5); Carbon Dioxide 25 mmol/L (22-29); Chloride 105 mmol/L (98-107); Glomerular Filtration Rate 134.4 mL/min (90-130); Glucose 153 mg/dL (65-115); Osmolality Calculated 294 mOsm/kg (285-295); Potassium 3.5 mmol/L (3.5-5.1); Sodium 140 mmol/L (136-145)
[2021-12-18 03:31] LABS: Chol HDL Ratio 4.57 mg/dL (1.0-5.00); Cholesterol 137 mg/dL (0-200); HDL Cholesterol 30 mg/dL (60-100); LDL Cholesterol Calculated 70 mg/dL (50-129); LDL HDL Ratio 2.33 RATIO (0.00-3.22); Triglycerides 186 mg/dL (0-150)
[2021-12-18 04:00] VITALS: BP 176/97; PULSE 70; RESP 20; TEMP 36.9; O2SAT 94
--- NOTE | 2021-12-18 06:00 | USCV_ITS ---
Dev Bess Age: 66 Gender: M : 1955 Exam Date: 12/18/2021 00:23 Ordering Phys: Tiago German MD Technologist: ELLIE Exam Location: [facility] – [place] Indication: CVA two days ago -- RIGHT hemipresis, RIGHT facial droop. BP: 189 / 101 HR: 70 Rhythm: Sinus Technical Quality: Adequate MEASUREMENTS (Male / Female) Normal Values 2D ECHO LV Diastolic Diameter PLAX 4.6 cm 4.2 - 5.9 / 3.9 - 5.3 cm LV Systolic Diameter PLAX 2.9 cm IVS Diastolic Thickness 1.8 cm 0.6 - 1.0 / 0.6 - 0.9 cm IVS Systolic Thickness 2.5 cm LVPW Diastolic Thickness 1.7 cm 0.6 - 1.0 / 0.6 - 0.9 cm LVPW Systolic Thickness 2.0 cm LVOT Diameter 2.0 cm LV Ejection Fraction 2D Teich 68.2 % LV Ejection Fraction MOD 2C 69.6 % LV Ejection Fraction 2C AL 69.9 % LA Diameter 4.7 cm LA Width 4.6 cm LA Height 6.4 cm RA Width 5.6 cm RA Height 5.2 cm Aorta at Sinotubular Diameter 3.1 cm IVC Diameter 2.4 cm M-MODE Aortic Annulus Diameter 3.4 cm LA Ao Ratio MM 1.4 MV E Point Septal Separation 0.4 cm DOPPLER AV Peak Velocity 118.0 cm/s LVOT Peak Velocity 86.0 cm/s AV Area Cont Eq vti 2.6 cm squared AV Area Cont Eq pk 2.4 cm squared MV Area PHT 3.0 cm squared Mitral E to A Ratio 0.7 MV E' Velocity 43.5 cm/s Mitral E to MV E' Ratio 13.4 Mitral E to LV E' Lateral Ratio 13.6 Mitral E to LV E' Septal Ratio 13.4 TR Peak Velocity 248.3 cm/s TR Peak Gradient 24.7 mmHg TV Peak E Velocity 70.0 cm/s Right Atrial Pressure 10.0 mmHg Pulmonary Artery Systolic Pressu 34.7 mmHg PV Peak Velocity 105.0 cm/s RV Acceleration Time 0.1 s RV Ejection Time 0.3 s RV AcT/ET 0.4 FINDINGS Left Ventricle Normal left ventricular cavity size and systolic function with moderately increased left ventricular wall thickness. Moderate concentric left ventricular hypertrophy. Left ventricular ejection fraction is estimated at 65 %. Grade I diastolic dysfunction (abnormal relaxation filling pattern), normal to mildly elevated filling pressures. Right Ventricle Normal right ventricular size and systolic function. Right ventricular systolic pressure 29 mmHg. Right Atrium Normal right atrial size. Left Atrium Mildly increased left atrial size. Mitral Valve Structurally normal mitral valve. No mitral valve stenosis. Trace mitral valve regurgitation. Aortic Valve Structurally normal trileaflet aortic valve. No aortic valve stenosis. No aortic valve regurgitation. Tricuspid Valve Structurally normal tricuspid valve. Pulmonic Valve Pulmonic valve not well visualized. No pulmonary valve stenosis. Pericardium No pericardial effusion. Aorta Normal size aortic root and proximal ascending aorta. IVC Normal IVC dimension with >50% respiratory change of the inferior vena cava. CONCLUSIONS 1. Normal left ventricular cavity size and systolic function with moderately increased left ventricular wall thickness. Moderate concentric left ventricular hypertrophy. Left ventricular ejection fraction is estimated at 65 %. Grade I diastolic dysfunction (abnormal relaxation filling pattern), normal to mildly elevated filling pressures. 2. Normal right ventricular size and systolic function. 3. Mildly increased left atrial size. 4. No prior similar studies to compare. Nataliia Ritchie MD (Electronically Signed) Final Date: 18 December 2021 12:49 S
[2021-12-18 07:44] VITALS: BP 184/94; PULSE 83; RESP 20; TEMP 36.8; O2SAT 95
[2021-12-18] MEDS: clopidogrel 75 mg Tablet PO (08:01)
[2021-12-18] MEDS: amlodipine 5 mg Tablet PO (08:01)
[2021-12-18] MEDS: aspirin 325 mg Tablet PO (08:01)
[2021-12-18] MEDS: polyethylene glycol 3350 Pkt 17 gm PO (10:10)
[2021-12-18] MEDS: docusate sodium 100 mg Capsule PO (10:11)
--- NOTE | 2021-12-18 10:15 | MR_ITS ---
WS: [id number] MRI BRAIN WITHOUT CONTRAST HISTORY: CVA COMPARISON: CT head 12/17/2021 TECHNIQUE: Diffusion imaging, multiplanar T1, T2 and FLAIR imaging obtained. Small bilateral acute lacunar infarcts are noted within the blake. No associated hemorrhage. There is additional very mild diffusion-weighted abnormality noted involving the anterior LEFT basal ganglia. These are 3 additional tiny acute lacunar infarcts identified at the level of the superior caudate he ad. Mild atrophy and small vessel ischemic disease. No prior infarct. No hemorrhage. Ventricles and extra-axial spaces are normal. No inferior displacement of cerebellar tonsils. The sella turcica and pituitary gland are unremarkabl e. Dural venous sinuses and [place] demonstrate no abnormality on this unenhanced studies. Smal l caliber distal LEFT vertebral artery. Paranasal sinuses: Small mucous retention cysts in the floor the maxillary sinuses, LEFT greater than RIGHT. Mastoid air cells: Normal. Calvarium and scalp: Intact. MR/MR head wo con* [id number] IMPRESSION: 1. Small acute bilateral pontine infarcts. Suggest posterior circulation etiol ogies such as the basilar artery. No thrombus or stenosis was noted on a recent CT angiogram from 12/15/2021. 2. Additional very tiny acute lacunar infarcts in the LEFT anterior basal gang milan at the superior level of the caudate head. Consistent with LEFT anterior ci rculation etiology. These are 3 very tiny adjacent lacunar infarcts.
[2021-12-18 11:56] VITALS: BP 175/79; PULSE 96; RESP 18; TEMP 36.7; O2SAT 97
--- NOTE | 2021-12-18 13:42 | P.PN_ITS ---
Subjective Subjective: Dev reports he is feeling better today. No word finding difficulty. Speech is less slurred. comments that his right facial droop is improved. He reports his weakness is improved and he can get up some. Medications: Reviewed: Yes Vitals/I&O/Wt Last Vital Signs Temp 98.1 F 12/18/21 11:56 Pulse 96 12/18/21 11:56 Resp 18 12/18/21 11:56 BP 175/79 12/18/21 11:56 Pulse Ox 97 12/18/21 11:56 O2 Del Method 12/18/21 11:56 12/17/21 12/18/21 12/18/21 22:59 06:59 14:59 Intake Total 1476.25 / 1476.25 360 / 360 Output Total 350 / 350 500 / 850 775 / 775 Balance -350 / -350 976.25 / 626.25 -415 / -415 Weight last 48 hrs Weight 158.168 kg Weight 149.685 kg Physical Exam Narrative: Is a white male, mild slurring. Right facial droop much improved. Neurologic: Right facial droop noted but improved. It is hard to differentiate strength difference currently although some is still present in his right lower extremity. HEENT: Pupils equally round. Oropharynx clear. Neck is supple no lymphadenopathy thyromegaly Cardiovascular regular rate and rhythm, no murmur Lungs clear no wheezing or crackles Abdomen is soft nontender positive bowel sounds. No obvious organomegaly exams deferred Extremities no cyanosis clubbing or edema, cap refill brisk Skin no rash Data : 12/18/21 02:40 12/18/21 02:40 Other Labs: MRI demonstrates small acute bilateral pontine infarcts, and teeny lacunar infarcts left anterior basal ganglia. This raises the question of embolic phenomenon. Telemetry has not indicated any atrial fibrillation currently. Echocardiogram demonstrates EF of 65%, diastolic dysfunction, mildly increased left atrial size A&P Assessment and plan (1) Acute CVA (cerebrovascular accident): Acute CVA, with symptoms of right facial droop, word finding difficulty, slurred speech, right upper and right lower extremity weakness. Continue statin Discussed case with neurology. At this point will initiate low-dose Eliquis at 2.5 mg twice daily, with plans to increase this to 5 mg twice daily in approximately 1 week. Discontinue Plavix. Continue aspirin. CTA been performed. This is been performed on previous ER visit. No thrombus was noted. Echocardiogram demonstrates diastolic dysfunction, no valvular heart disease. Left atrial size was enlarged Telemetry indicates no atrial fibrillation currently but will need event monitor on discharge MRI demonstrated bilateral lesions, increasing chance of embolic stroke greatly Permissive hypertension. Continue therapy Discontinue IV fluids Status: Acute (2) HTN (hypertension): Allow for permissive hypertension. Consider chronicity of symptoms, will initiate 5 mg of Norvasc daily. Continue Norvasc 5 mg daily Status: Acute (3) Hyperglycemia: Arrange for consistent carb diet A1c was checked and not elevated. TSH demonstrated hypothyroidism. Medication started low dose. Will need TSH in 6 weeks. Status: Acute Plan Morbid obesity. High probability of sleep apnea. Will need to follow-up with his primary care provider for sleep study. I discussed this with the patient. Full code Eliquis for DVT prophylaxis Attestations Medical Necessity Statement*: Needs continued hospital stay for close monitoring secondary to CVA, bilateral infarcts, with high degree of concern for embolic CVA Coding Level of Care Code Acute Recorder Helper Gravity Prospecting for Chg Fwd Diagnoses Acute CVA (cerebrovascular accident) I63.9 HTN (hypertension) I10 Hyperglycemia R73.9
[2021-12-18 15:33] VITALS: BP 161/83; PULSE 85; RESP 18; TEMP 36.7; O2SAT 96
[2021-12-18 20:00] VITALS: BP 195/90; PULSE 85; RESP 20; TEMP 37.2; O2SAT 90
[2021-12-18] MEDS: apixaban 5 mg Tablet 2.5 MG PO (21:04)
[2021-12-18] MEDS: atorvastatin 40 mg Tablet PO (21:04)
[2021-12-18 22:00] VITALS: PULSE 72
[2021-12-19] VITALS (12 sets, daily range): BP systolic 169–242; BP diastolic 88–121; PULSE 78–95; RESP 14–20; TEMP 36.6–37; O2SAT 94–97
[2021-12-19 05:11] LABS: Basophils # 0.1 10^3/uL (0.0-0.1); Basophils % 0.6 %; Eosinophils # 0.2 10^3/uL (0.0-0.8); Eosinophils % 2.6 %; Hematocrit 42.9 % (42.0-52.0); Hemoglobin 14.2 g/dL (11.7-16.6); Lymphocytes # 2.2 10^3/uL (0.8-4.8); Lymphocytes % 27.9 %; Mean Corpuscular HGB Conc 33.1 g/dL (30.0-36.0); Mean Corpuscular Hemoglobin 29.5 pg (28.0-34.0); Mean Platelet Volume 10.5 fL (7.4-10.4); Monocytes # 0.7 10^3/uL (0.2-0.9); Neutrophils # 4.56 10^3/uL (1.8-7.7); Neutrophils % 58.9 %; Nucleated Red Blood Cells % 0 %; Platelet Count 186 10^3/cmm (130-400); Red Blood Count 4.82 10^6/uL (4.1-5.3); Red Cell Distribution Width 12.9 % (12.1-15.1); White Blood Count 7.8 10^3/uL (4.0-10.0)
[2021-12-19] MEDS: levothyroxine 25 mcg Tablet PO (05:13)
[2021-12-19 05:37] LABS: Anion Gap 14.7 (5-19); Blood Urea Nitrogen 17 mg/dL (8-23); Calcium 8.9 mg/dL (8.5-10.5); Carbon Dioxide 26 mmol/L (22-29); Chloride 105 mmol/L (98-107); Glomerular Filtration Rate 112.5 mL/min (90-130); Glucose 160 mg/dL (65-115); Osmolality Calculated 299 mOsm/kg (285-295); Potassium 3.7 mmol/L (3.5-5.1); Sodium 142 mmol/L (136-145)
[2021-12-19] MEDS: amlodipine 5 mg Tablet PO ×2 (07:26→17:07)
[2021-12-19] MEDS: docusate sodium 100 mg Capsule PO ×2 (08:18→17:07)
[2021-12-19] MEDS: aspirin 325 mg Tablet PO (08:18)
[2021-12-19] MEDS: apixaban 5 mg Tablet 2.5 MG PO ×2 (08:18→21:26)
[2021-12-19] MEDS: polyethylene glycol 3350 Pkt 17 gm PO ×2 (08:18→17:07)
--- NOTE | 2021-12-19 14:35 | P.PN_ITS ---
Subjective Subjective: Patient was seen and examined this morning, speech is good,no word findings difficulty, has minimal rt sided residual weakness. Am B/P was noted to be 242/110. Patient has received Amlodipine 5 Mg po this am,plan is to monitor the b/p today. Medications: Reviewed: Yes Medication Review Details: Generic Name Dose Route Start Last Admin Trade Name Alicja PRN Reason Stop Dose Admin Acetaminophen 650 mg 12/17/21 11:52 12/17/21 18:45 Acetaminophen 32 5 Mg Tablet PO 650 mg Q6H PRN Administration FEVER Apixaban 2.5 mg 12/18/21 21:00 12/19/21 08:18 Apixaban 5 Mg Ta blet PO 2.5 mg BID@0900,2100 DILEEP Administration Aspirin 325 mg 12/18/21 09:00 12/19/21 08:18 Aspirin 325 Mg T ablet PO 325 mg DAILY DILEEP Administration Atorvastatin Calci um 40 mg 12/17/21 21:00 12/18/21 21:04 Atorvastatin 40 Mg Tablet PO 40 mg BEDTIME DILEEP Administration Docusate Sodium 100 mg 12/18/21 09:00 12/19/21 08:18 Docusate Sodium 100 Mg Capsule PO 100 mg BID DILEEP Administration Levothyroxine Sodi um 25 mcg 12/19/21 06:00 12/19/21 05:13 Levothyroxine 25 Mcg Tablet PO 25 mcg QAM DILEEP Administration Polyethylene Glyco l 17 gm 12/18/21 09:00 12/19/21 08:18 Polyethylene Gly col 3350 Pkt 17 Gm PO 17 gm BID DILEEP Administration Vitals/I&O/Wt Last Vital Signs Temp 98.0 F 12/19/21 12:59 Pulse 90 12/19/21 12:59 Resp 14 12/19/21 12:59 BP 184/98 12/19/21 12:59 Pulse Ox 95 12/19/21 12:59 O2 Del Method 12/19/21 12:59 12/18/21 12/19/21 12/19/21 22:59 06:59 14:59 Intake Total 240 / 600 880 / 1480 240 / 240 Output Total 350 / 1125 100 / 100 Balance -110 / -525 880 / 355 140 / 140 Weight last 48 hrs Weight 156.489 kg Weight 158.168 kg Physical Exam Resp: COMMON NORMALS: clear to auscultation bilaterally AUSCULTATION: clear to auscultation bilaterally Cardio: COMMON NORMALS: regular rate, regular rhythm, S1 normal heart sound present, S2 normal heart sound present, No gallops present (Cardio), No murmurs present (Cardio), No rub (Cardio) and Peripheral pulses 2+ throughout RATE: regular rate RHYTHM: regular rhythm HEART SOUNDS: S1 normal heart sound present and S2 normal heart sound present PERIPHERAL PULSES: Peripheral pulses 2+ throughout GI: COMMON NORMALS: Normal to inspection, nondistended, normoactive bowel sounds present, Soft to palpation, non-tender, No hepatosplenomegaly present and no masses AUSCULTATION: Yes normoactive bowel sounds PALPATION: Yes Soft to palpation and Yes No hepatosplenomegaly present RECTAL EXAM: Yes deferred Extremity: NARRATIVE EXTREMITY EXAM: Rt sided minimal residual weakness Present Data : 12/19/21 04:30 12/19/21 04:30 A&P Assessment and plan (1) Acute CVA (cerebrovascular accident): Acute CVA, with symptoms of right facial droop, word finding difficulty, slurred speech, right upper and right lower extremity weakness. Continue statin Discussed case with neurology. At this point will initiate low-dose Eliquis at 2.5 mg twice daily, with plans to increase this to 5 mg twice daily in approximately 1 week. Discontinue Plavix. Continue aspirin. CTA been performed. This is been performed on previous ER visit. No thrombus was noted. Echocardiogram demonstrates diastolic dysfunction, no valvular heart disease. Left atrial size was enlarged Telemetry indicates no atrial fibrillation currently but will need event monitor on discharge MRI demonstrated bilateral lesions, increasing chance of embolic stroke greatly Permissive hypertension. Continue therapy Discontinue IV fluids Status: Acute (2) HTN (hypertension): Allow for permissive hypertension. Consider chronicity of symptoms, will initiate 5 mg of Norvasc daily. Continue Norvasc 5 mg daily Status: Acute (3) Hyperglycemia: Arrange for consistent carb diet A1c was checked and not elevated. TSH demonstrated hypothyroidism. Medication started low dose. Will need TSH in 6 weeks. Status: Acute Plan Morbid obesity. High probability of sleep apnea. Will need to follow-up with his primary care provider for sleep study. I discussed this with the patient. Full code Eliquis for DVT prophylaxis Attestations Medical Necessity Statement*: Patient needs to be in hospital for the management of Ac CVA. Coding Level of Care Code Acute Cutch Cleaner for Chg Fwd Diagnoses Acute CVA (cerebrovascular accident) I63.9 HTN (hypertension) I10 Hyperglycemia R73.9
[2021-12-19] MEDS: atorvastatin 40 mg Tablet PO (21:27)
[2021-12-20 04:00] VITALS: BP 177/73; PULSE 91; RESP 18; TEMP 36.6; O2SAT 97
[2021-12-20 05:28] VITALS: PULSE 80
[2021-12-20] MEDS: levothyroxine 25 mcg Tablet PO (06:19)
[2021-12-20 07:33] VITALS: BP 185/89; PULSE 85; RESP 18; TEMP 36.8; O2SAT 93
[2021-12-20] MEDS: apixaban 5 mg Tablet 2.5 MG PO (09:45)
[2021-12-20] MEDS: aspirin 325 mg Tablet PO (09:45)
[2021-12-20] MEDS: amlodipine 10 mg Tablet PO (09:45)
--- NOTE | 2021-12-20 09:51 | P.DS_ITS ---
Discharge Providers Date of Admission: 12/17/21 11:42 Date of Discharge: December 20, 2021 Attending Provider at Admission: Tiago German MD Attending Provider at Discharge: Hang Burt MD Primary Care Provider: ANETTE oLra Diagnoses at Discharge Discharge Diagnosis (1) Acute CVA (cerebrovascular accident): Status: Acute (2) HTN (hypertension): Status: Acute (3) Hyperglycemia: Status: Acute Reason for Visit Reason for Visit: GENERALIZED WEAKNESS Hospital Course Hospital Course 66 year old male came to the hospital with some waxing and waning neurologic symptoms.? He reports symptoms first started on Tuesday, and was associated with some slurring of his speech, word finding difficulty, and some difficulty ambulating.?He was also complaining of right-sided weakness. He was admitted for the management of acute CVA: MRI brain done without contrast : Small acute bilateral pontine infarcts. Suggest posterior circulation etiologies such as the basilar artery. No thrombus or stenosis was noted on a recent CT angiogram from 12/15/2021.Additional very tiny acute lacunar infarcts in the LEFT anterior basal ganglia at the superior level of the caudate head. Consistent with LEFT anterior circulation etiology. These are 3 very tiny adjacent lacunar infarcts. He was kept on stroke protocol , neurology was curbside consulted, they wanted patient to be started on Eliquis At a lower dose for the first 1 week (2.5 mg p.o. twice daily) followed by 5 mg p.o. twice daily thereafter, based on the clinical suspicion for possible underlying A. fib, in light of above MRI findings, 2D echo done during the hospital stay: Showed normal LV size and systolic function, mild concentric LVH, LVEF of 65%, grade 1 diastolic dysfunction, normal RV size and systolic function.Patient was also started on aspirin and statin, amlodipine 10 mg p.o. daily has been started for his blood pressure. Patient will also wear event monitor for 30 days. At the time of discharge, patient had significantly improved Speech was more or less normal, no word finding difficulties, minimal residual right-sided weakness. Overall patient has responded well to above medical management and is being discharged in stable condition to home. He will continue to follow-up with neurology and primary care physician as outpatient. Physical Exam Resp: COMMON NORMALS: clear to auscultation bilaterally AUSCULTATION: clear to auscultation bilaterally Cardio: COMMON NORMALS: regular rate, regular rhythm, S1 normal heart sound present, S2 normal heart sound present, No gallops present (Cardio), No murmurs present (Cardio), No rub (Cardio) and Peripheral pulses 2+ throughout RATE: regular rate RHYTHM: regular rhythm HEART SOUNDS: S1 normal heart sound present and S2 normal heart sound present PERIPHERAL PULSES: Peripheral pulses 2+ throughout GI: COMMON NORMALS: Normal to inspection, nondistended, normoactive bowel sounds present, Soft to palpation, non-tender, No hepatosplenomegaly present and no masses AUSCULTATION: Yes normoactive bowel sounds PALPATION: Yes Soft to palpation and Yes No hepatosplenomegaly present RECTAL EXAM: Yes deferred Extremity: NARRATIVE EXTREMITY EXAM: Rt sided minimal residual weakness Present Discharge Data Studies Completed and Pending Completed Studies During Hospitalization Category Date Time Status CT head wo con* [id number] Stat Cat Scan 12/17/21 08:26 Completed MR head wo con* [id number] Urgent MRI 12/18/21 10:15 Completed CV. echo complete* [id number] Routine Ultrasound 12/18/21 06:00 Completed Radiology Impressions Head CT 12/17/21 08:26 Impression: Negative CT scan of the head Head MRI 12/18/21 10:15 IMPRESSION: 1. Small acute bilateral pontine infarcts. Suggest posterior circulation etiologies such as the basilar artery. No thrombus or stenosis was noted on a recent CT angiogram from 12/15/2021. 2. Additional very tiny acute lacunar infarcts in the LEFT anterior basal ganglia at the superior level of the caudate head. Consistent with LEFT anterior circulation etiology. These are 3 very tiny adjacent lacunar infarcts. Laboratory Results WBC 7.8 10^3/uL (4.0-10.0) 12/19/21 04:30 RBC 4.82 10^6/uL (4.1-5.3) 12/19/21 04:30 Hgb 14.2 g/dL (11.7-16.6) 12/19/21 04:30 Hct 42.9 % (42.0-52.0) 12/19/21 04:30 MCV 89.0 fl (80-94) 12/19/21 04:30 MCH 29.5 pg (28.0-34.0) 12/19/21 04:30 MCHC 33.1 g/dL (30.0-36.0) D 12/19/21 04:30 RDW 12.9 % (12.1-15.1) 12/19/21 04:30 Plt Count 186 10^3/cmm (130-400) 12/19/21 04:30 MPV 10.5 fL (7.4-10.4) H 12/19/21 04:30 Neut % (Auto) 58.9 % 12/19/21 04:30 Lymph % (Auto) 27.9 % 12/19/21 04:30 [place] % (Auto) 9.0 % 12/19/21 04:30 Eos % (Auto) 2.6 % 12/19/21 04:30 Baso % (Auto) 0.6 % 12/19/21 04:30 Neut # (Auto) 4.56 10^3/uL (1.8-7.7) 12/19/21 04:30 Lymph # (Auto) 2.2 10^3/uL (0.8-4.8) 12/19/21 04:30 [place] # (Auto) 0.7 10^3/uL (0.2-0.9) 12/19/21 04:30 Eos # (Auto) 0.2 10^3/uL (0.0-0.8) 12/19/21 04:30 Baso # (Auto) 0.1 10^3/uL (0.0-0.1) 12/19/21 04:30 Nucleated RBC % (auto) 0 % 12/19/21 04:30 Nucleated RBCs # 0.0 /100WBC 12/19/21 04:30 Sodium 142 mmol/L (136-145) 12/19/21 04:30 Potassium 3.7 mmol/L (3.5-5.1) 12/19/21 04:30 Chloride 105 mmol/L (98-107) 12/19/21 04:30 Carbon Dioxide 26 mmol/L (22-29) 12/19/21 04:30 Anion Gap 14.7 (5-19) 12/19/21 04:30 BUN 17 mg/dL (8-23) 12/19/21 04:30 Creatinine 0.7 mg/dL (0.7-1.2) 12/19/21 04:30 GFR Calculation 112.5 mL/min (90-130) 12/19/21 04:30 Glucose 160 mg/dL (65-115) H 12/19/21 04:30 Estimat Average Glucose 114 12/18/21 02:40 Hemoglobin A1c 5.6 % (4.0-6.0) 12/18/21 02:40 Calculated Osmolality 299 mOsm/kg (285-295) H 12/19/21 04:30 Calcium 8.9 mg/dL (8.5-10.5) 12/19/21 04:30 Total Bilirubin 0.5 mg/dL (0.15-1.2) 12/17/21 07:30 AST 23 U/L (0-40) 12/17/21 07:30 ALT 33 U/L (0-41) 12/17/21 07:30 Alkaline Phosphatase 77 IU/L (40-130) 12/17/21 07:30 Total Protein 7.2 g/dL (6.6-8.7) 12/17/21 07:30 Albumin 4.4 g/dL (3.5-5.2) 12/17/21 07:30 Globulin 2.8 g/dL (1.3-4.6) 12/17/21 07:30 Triglycerides 186 mg/dL (0-150) H 12/18/21 02:40 Cholesterol 137 mg/dL (0-200) 12/18/21 02:40 LDL Cholesterol, Calc 70 mg/dL (50-129) 12/18/21 02:40 HDL Cholesterol 30 mg/dL (60-100) L 12/18/21 02:40 LDL/HDL Ratio 2.33 RATIO (0.00-3.22) 12/18/21 02:40 Cholesterol/HDL Ratio 4.57 mg/dL (1.0-5.00) 12/18/21 02:40 TSH 23.25 uIU/mL (0.27-4.20) H 12/17/21 07:30 Free T4 0.79 ng/dL (0.82-1.77) L 12/17/21 07:30 Free T3 3.1 PG/ML (2.0-4.4) 12/17/21 07:30 Urine Color Yellow (Yellow) 12/17/21 10:50 Urine Appearance Clear (CLEAR) 12/17/21 10:50 Urine pH 5 (5-7) 12/17/21 10:50 Ur Specific [place] 1.020 (1.005-1.030) 12/17/21 10:50 Urine Protein Neg (Negative) 12/17/21 10:50 Urine Glucose (UA) Norm (Normal) 12/17/21 10:50 Urine Ketones Negative (Negative) 12/17/21 10:50 Urine Blood Neg (Negative) 12/17/21 10:50 Urine Nitrate Negative (Negative) 12/17/21 10:50 Urine Bilirubin Neg (Negative) 12/17/21 10:50 Urine Urobilinogen Norm mg/dL (Negative) 12/17/21 10:50 Ur Leukocyte Esterase Negative (Negative) 12/17/21 10:50 Vitals Last Vital Signs Temp 98.2 F 12/20/21 07:33 Pulse 85 12/20/21 07:33 Resp 18 12/20/21 07:33 BP 185/89 12/20/21 07:33 Pulse Ox 93 12/20/21 07:33 O2 Del Method 12/19/21 15:27 Discharge Plan Discharge Patient Disposition: Home Condition: Stable Prescriptions: New aspirin 325 mg tablet,delayed release (DR/EC) 325 mg PO DAILY Qty: 30 0RF Eliquis 2.5 mg tablet 2.5 mg PO BID Qty: 98 0RF Rx Instructions: 5 mg twice daily for 1 week, then 5 mg twice daily amlodipine 10 mg tablet 10 mg PO DAILY 30 Days Qty: 30 3RF Continued ascorbic acid (vitamin C) [Vitamin C] 500 mg Tablet 500 mg PO DAILY atorvastatin 40 mg tablet 40 mg PO DAILY Qty: 30 0RF Discontinued cyanocobalamin (vitamin B-12) [Vitamin B-12] 500 mcg Tablet 500 mcg PO DAILY ibuprofen 200 mg Tablet 800 mg PO Q6H PRN (Reason: Pain) [id number] 333-133-5 mg Tablet 1 tab PO DAILY Daily Build 1 tab PO DAILY Goyin Juice 1 oz PO DAILY Immune+ Tabs 1 tab PO DAILY Mangosteen Juice 1 oz PO DAILY Metabolic One 1 cap PO DAILY clopidogrel 75 mg tablet 75 mg PO DAILY Qty: 30 0RF aspirin 81 mg tablet,delayed release (DR/EC) 81 mg PO DAILY Qty: 30 0RF amlodipine 5 mg tablet 5 mg PO DAILY Qty: 30 0RF lisinopril 10 mg tablet 10 mg PO BID Qty: 60 0RF metoprolol succinate [Toprol XL] 25 mg tablet extended release 24 hr 12.5 mg PO DAILY Qty: 30 0RF Discharge Orders: Discharge Order (Routine); Ordered 12/20/21 Ordered By: Hang Burt Other Ambulatory Orders: MCT/Event Monitor 30 Days (Routine) Timeframe: 2 Days Facility: [facility] - Location: Radiology Ordered By: Tiago Garciaston Referrals: Teresa Bautista MD [Physician] - 2 weeks (Please contact Dr. Bautista's office Tuesday morning to schedule a follow up appointment within 2 weeks. Thank you!) Mireille Franklin FNP [Primary Care Provider] - 12/23/21 11:30 am Eliz Chawla FNP [Nurse Practitioner] - (Please contact [facility] Tuesday to schedule an event monitor to be placed.) Patient Instructions: Aspirin (By mouth), Amlodipine (By mouth), Apixaban (By mouth), Hypertension, Heart Healthy Diet (DC), Stroke (GEN), Opioid Safety, Stroke Stoplight Discharge Attestations Time Spent in Discharge Care*: less than 30 min Quality Metrics Clinical Quality Measures [ No reported AMI, CVA or VTE this stay] Coding Level of Care Code Acute Chg FW DC note Diagnoses Acute CVA (cerebrovascular accident) I63.9 HTN (hypertension) I10 Hyperglycemia R73.9
[2021-12-20 10:58] VITALS: BP 185/89; PULSE 85; RESP 18; TEMP 36.8; O2SAT 93
--- NOTE | 2021-12-20 12:55 | PC.SOCIAL ---
IMM Update @ 0900 IMM updated and reviewed w/ patient and . Copy provided and Copy dated, initialed and placed in chart.
== END 2021-12-20 10:45 | disposition home or self-care (01) | DRG 65 ==
LOC: ER 08:36 → MEDSURG 14:35
PROVIDERS: Admitting Provider Internal Medicine; Emergency Provider Family Medicine; PCP Nurse Practitioner Family; Visit Provider Internal Medicine
DX: I63.9 Cerebral infarction, unspecified (principal); G81.91 Hemiplegia, unspecified affecting right dominant side; Z68.42 Body mass index [BMI] 45.0-49.9, adult; R29.810 Facial weakness; R47.81 Slurred speech; R29.701 NIHSS score 1; I10 Essential (primary) hypertension; E66.01 Morbid (severe) obesity due to excess calories; R73.9 Hyperglycemia, unspecified; G47.30 Sleep apnea, unspecified; I48.91 Unspecified atrial fibrillation
CPT/HCPCS: 36415; 70450; 70496; 70498; 70551; 71045; 80048; 80053; 80061; 81003; 83036; 84439; 84443; 84481; 85025; 92507; 92523; 92526; 92610; 93005; 93306; 96361; 96372; 96374; 96375; 97110; 97116; 97161; 97166; 97530; 99285; J0360; J1650; J3490; J7030

== ENCOUNTER → 2021-12-23 13:15 | Outpatient (BNVA) | payer MEDICARE, SELFPAY | PROVIDERS: PCP Nurse Practitioner Family; Visit Provider Internal Medicine Cardiovascular Disease | DX: I63.9 Cerebral infarction, unspecified (principal); I49.1 Atrial premature depolarization; I49.3 Ventricular premature depolarization | CPT/HCPCS: 93270 ==

== ENCOUNTER → 2022-01-04 13:35 | Outpatient (BNVA) | payer MEDICARE, SELFPAY | PROVIDERS: PCP Nurse Practitioner Family; Referring Provider Internal Medicine; Visit Provider Specialist | DX: I69.398 Other sequelae of cerebral infarction (principal); I48.91 Unspecified atrial fibrillation; I10 Essential (primary) hypertension; E66.01 Morbid (severe) obesity due to excess calories; R26.89 Other abnormalities of gait and mobility; Z68.42 Body mass index [BMI] 45.0-49.9, adult | CPT/HCPCS: 99204; 99205 ==

== ENCOUNTER → 2022-03-03 09:35 | Outpatient (BNVA) | payer MEDICARE, SELFPAY | PROVIDERS: PCP Nurse Practitioner Family; Referring Provider Specialist; Visit Provider Internal Medicine Cardiovascular Disease | DX: I63.81 Other cerebral infarction due to occlusion or stenosis of small artery (principal); I48.91 Unspecified atrial fibrillation; I10 Essential (primary) hypertension | CPT/HCPCS: 99204 ==

== ENCOUNTER 2022-03-19 06:02 | Outpatient (CLI) | payer MEDICARE, SELFPAY ==
[2022-03-19 06:35] VITALS: BP 197/86; PULSE 81; RESP 18; TEMP 36.9; O2SAT 96; BMI 47.4
[2022-03-19 06:48] LABS: Basophils % 0.4 %; Eosinophils # 0.2 10^3/uL (0.0-0.8); Eosinophils % 2.1 %; Hematocrit 39.7 % (42.0-52.0); Hemoglobin 13.2 g/dL (11.7-16.6); Lymphocytes % 27.9 %; Mean Corpuscular HGB Conc 33.2 g/dL (30.0-36.0); Mean Corpuscular Hemoglobin 29.3 pg (28.0-34.0); Mean Platelet Volume 9.9 fL (7.4-10.4); Monocytes # 0.7 10^3/uL (0.2-0.9); Monocytes % 10.2 %; Neutrophils # 4.12 10^3/uL (1.8-7.7); Neutrophils % 58.5 %; Nucleated Red Blood Cells % 0 %; Platelet Count 158 10^3/cmm (130-400); Red Blood Count 4.51 10^6/uL (4.1-5.3); Red Cell Distribution Width 12.4 % (12.1-15.1); White Blood Count 7.1 10^3/uL (4.0-10.0)
[2022-03-19] MEDS: cephALEXin 500 mg Capsule 2000 MG PO (06:48)
[2022-03-19 08:00] VITALS: BP 172/84; PULSE 74; RESP 18; O2SAT 95
--- NOTE | 2022-03-19 08:13 | PM.OP ---
Operative Report Date of procedure: March 19, 2022 Brief History: IMPLANTABLE PER ASSESSMENT NURSE (REVEAL LINQ) INSERTION NOTE: Location: [facility] Referring provider: Dr. Ritchie Indication: Cryptogenic stroke Brief history: 66 year old male here for HTN, recent CVA, HLD and obesity.? He presented with generalized weakness on 12/17/2021 with wake-up symptoms of word finding difficulty.? He was extremely hypertensive at that time and CT of the head and CTA were negative.? He was started on metoprolol, lisinopril, amlodipine, statin and dual antiplatelet therapy.? His symptoms were resolved when he left here 12/15/2021 but he returned on 12/17 complaining of slurred speech, dysarthria and weakness on the right.? MRI showed small but bilateral infarcts and for that reason he was started on apixaban. No atrial fibrillation on event monitor. We decided on placing ILR for detection of underlying atrial fibrillation. Procedure: Patient was identified and procedure was explained to the patient in detail. Risks and benefits of the procedure were discussed with the patient. Informed consent was obtained. Patient was prepped and draped with STERILE drapes with all aseptic precautions. The patient was anesthetized with 16 mL of lidocaine. A small tammy in the skin was made and REVEAL LINQ LNQ 11, serial number [[id number]] was implanted. Blood loss was less than 10 mL. The skin was secured with Steri-Strips and Tegaderm was applied on top. R-wave amplitude of [0.20] mV was detected. Sensitivity set at 0.035 mV with tachycardia set at [162] bpm and bradycardia detection set at 40 bpm. Programmed to detect longest A. fib. Patient tolerated the procedure pretty well.
[2022-03-19 08:54] VITALS: BP 175/83; PULSE 74; RESP 18; O2SAT 95
--- NOTE | 2022-03-19 09:35 | PC.NURSE ---
Around 0920: Patient discharged to home via private vehicle. Dsg clean, dry, et intact. Reviewed discharge instructions with patient and spouse. Patient verbalized understanding of all teaching, no questions or concerns. Follow up appointments made.
== END 2022-03-19 09:45 | disposition home or self-care (01) ==
PROVIDERS: PCP Nurse Practitioner Family; Visit Provider Internal Medicine Cardiovascular Disease
PROC: (CPT 33285; principal; 2022-03-19 07:00)
DX: I63.9 Cerebral infarction, unspecified (principal)
CPT/HCPCS: 33285; 85025; C1764; C1769

== ENCOUNTER → 2022-03-25 09:57 | Outpatient (BNVA) | payer MEDICARE, SELFPAY | PROVIDERS: PCP Nurse Practitioner Family; Visit Provider Nurse Practitioner Family | DX: Z95.818 Presence of other cardiac implants and grafts (principal) | CPT/HCPCS: 99213 ==

== ENCOUNTER → 2022-05-21 09:30 | Outpatient (BNVA) | payer MEDICARE, SELFPAY | PROVIDERS: PCP Nurse Practitioner Family; Visit Provider Internal Medicine Cardiovascular Disease | DX: Z45.09 Encounter for adjustment and management of other cardiac device (principal) | CPT/HCPCS: 93291 ==

== ENCOUNTER → 2022-09-21 08:49 | Outpatient (BNVA) | payer MEDICARE, SELFPAY | PROVIDERS: PCP Nurse Practitioner Family; Visit Provider Internal Medicine Cardiovascular Disease | DX: Z45.09 Encounter for adjustment and management of other cardiac device (principal) | CPT/HCPCS: G2066 ==

== ENCOUNTER → 2022-10-22 10:28 | Outpatient (BNVA) | payer MEDICARE, SELFPAY | PROVIDERS: PCP Nurse Practitioner Family; Visit Provider Internal Medicine Cardiovascular Disease | DX: Z86.73 Personal history of transient ischemic attack (TIA), and cerebral infarction without residual deficits (principal); E78.5 Hyperlipidemia, unspecified; I10 Essential (primary) hypertension; E66.01 Morbid (severe) obesity due to excess calories; Z68.43 Body mass index [BMI] 50.0-59.9, adult | CPT/HCPCS: 99214 ==

== ENCOUNTER → 2022-12-14 15:35 | Outpatient (BNVA) | payer MEDICARE, SELFPAY | PROVIDERS: PCP Nurse Practitioner Family; Visit Provider Internal Medicine Cardiovascular Disease | DX: Z45.09 Encounter for adjustment and management of other cardiac device (principal) | CPT/HCPCS: G2066 ==

== ENCOUNTER → 2023-01-20 14:14 | Outpatient (BNVA) | payer MEDICARE, SELFPAY | PROVIDERS: PCP Nurse Practitioner Family; Visit Provider Internal Medicine Cardiovascular Disease | DX: Z45.09 Encounter for adjustment and management of other cardiac device (principal) | CPT/HCPCS: G2066 ==

== ENCOUNTER → 2023-02-24 15:59 | Outpatient (BNVA) | payer MEDICARE, SELFPAY | PROVIDERS: PCP Nurse Practitioner Family; Visit Provider Internal Medicine Cardiovascular Disease | DX: Z45.09 Encounter for adjustment and management of other cardiac device (principal) | CPT/HCPCS: G2066 ==

== ENCOUNTER → 2023-06-09 09:37 | Outpatient (BNVA) | payer MEDICARE, SELFPAY | PROVIDERS: PCP Nurse Practitioner Family; Visit Provider Nurse Practitioner Family | DX: I48.0 Paroxysmal atrial fibrillation (principal); Z79.01 Long term (current) use of anticoagulants | CPT/HCPCS: 99213 ==

== ENCOUNTER → 2023-07-21 10:31 | Outpatient (BNVA) | payer MEDICARE, SELFPAY | PROVIDERS: PCP Nurse Practitioner Family; Visit Provider Nurse Practitioner Family | DX: I48.0 Paroxysmal atrial fibrillation (principal); I10 Essential (primary) hypertension; Z79.01 Long term (current) use of anticoagulants | CPT/HCPCS: 99214 ==

== ENCOUNTER → 2023-11-02 12:08 | Outpatient (BNVA) | payer MEDICARE, SELFPAY | PROVIDERS: PCP Nurse Practitioner Family; Visit Provider Internal Medicine Cardiovascular Disease | DX: R06.02 Shortness of breath (principal); I10 Essential (primary) hypertension; R53.83 Other fatigue; E78.5 Hyperlipidemia, unspecified; I48.0 Paroxysmal atrial fibrillation; E66.01 Morbid (severe) obesity due to excess calories; I63.81 Other cerebral infarction due to occlusion or stenosis of small artery | CPT/HCPCS: 36415; 80048; 83880; 99214 ==

== ENCOUNTER → 2024-01-04 08:55 | Outpatient (BNVA) | payer MEDICARE, SELFPAY | PROVIDERS: PCP Nurse Practitioner Family; Visit Provider Internal Medicine Cardiovascular Disease | DX: Z45.09 Encounter for adjustment and management of other cardiac device (principal) | CPT/HCPCS: 93298 ==

== ENCOUNTER → 2024-02-08 10:06 | Outpatient (BNVA) | payer MEDICARE, SELFPAY | PROVIDERS: PCP Nurse Practitioner Family; Visit Provider Internal Medicine Cardiovascular Disease | DX: Z45.09 Encounter for adjustment and management of other cardiac device (principal) | CPT/HCPCS: 93298 ==

== ENCOUNTER → 2024-03-14 13:00 | Outpatient (BNVA) | payer MEDICARE, SELFPAY | PROVIDERS: PCP Nurse Practitioner Family; Visit Provider Internal Medicine Cardiovascular Disease | DX: Z45.09 Encounter for adjustment and management of other cardiac device (principal) | CPT/HCPCS: 93298 ==

== ENCOUNTER → 2024-04-25 09:41 | Outpatient (BNVA) | payer MEDICARE, SELFPAY | PROVIDERS: PCP Nurse Practitioner Family; Visit Provider Internal Medicine Cardiovascular Disease | DX: Z45.09 Encounter for adjustment and management of other cardiac device (principal) | CPT/HCPCS: 93298 ==

== ENCOUNTER → 2024-05-07 09:35 | Outpatient (BNVA) | payer MEDICARE, SELFPAY | PROVIDERS: PCP Nurse Practitioner Family; Visit Provider Internal Medicine Cardiovascular Disease | DX: I48.0 Paroxysmal atrial fibrillation (principal); I10 Essential (primary) hypertension; E78.5 Hyperlipidemia, unspecified; E66.01 Morbid (severe) obesity due to excess calories; Z68.42 Body mass index [BMI] 45.0-49.9, adult; Z86.73 Personal history of transient ischemic attack (TIA), and cerebral infarction without residual deficits; Z79.01 Long term (current) use of anticoagulants | CPT/HCPCS: 99214 ==

== ENCOUNTER → 2024-05-30 08:56 | Outpatient (BNVA) | payer MEDICARE, SELFPAY | PROVIDERS: PCP Nurse Practitioner Family; Visit Provider Internal Medicine Cardiovascular Disease | DX: Z45.09 Encounter for adjustment and management of other cardiac device (principal) | CPT/HCPCS: 93298 ==

== ENCOUNTER → 2024-06-01 08:16 | Outpatient (BNVA) | payer MEDICARE, SELFPAY | PROVIDERS: PCP Nurse Practitioner Family; Visit Provider Internal Medicine Cardiovascular Disease | DX: Z45.09 Encounter for adjustment and management of other cardiac device (principal); Z45.018 Encounter for adjustment and management of other part of cardiac pacemaker | CPT/HCPCS: 93291 ==

== ENCOUNTER → 2024-07-05 10:16 | Outpatient (BNVA) | payer MEDICARE, SELFPAY | PROVIDERS: PCP Nurse Practitioner Family; Visit Provider Internal Medicine | DX: Z45.09 Encounter for adjustment and management of other cardiac device (principal) | CPT/HCPCS: 93298 ==

== ENCOUNTER 2024-07-16 15:34 | Outpatient (CLI) | payer MEDICARE, SELFPAY ==
--- NOTE | 2024-07-16 15:38 | CT_ITS ---
WS: [id number] CT hip LT wo con* [id number] REASON FOR EXAM: LEFT HIP PAIN IV CONTRAST ADMINISTERED: None. TOTAL EXAM DLP: 1184.[address] scans at [facility] use at least one of these dose optimization techniques: automated exposure control; mA and/or kV adjustment per patient size (includes targeted exams where dose is matched to clinical indication); or iterative reconstruction. FINDINGS: No acute fractures identified. No focal bone lesion. No significant soft tissue abnormality. There is severe narrowing of the anterior superior joint space with [id number] articulation. There is extensive subchondral sclerosis and cystic change in the subchondral acetabulum and femoral head. Large osteophytosis of the acetabulum and femoral head. CT/CT hip LT wo con* [id number] IMPRESSION: Severe osteoarthritis with [id number] articulation. No acute abnormality.
== END 2024-07-16 15:35 | disposition home or self-care (01) ==
LOC: RAD 15:37
PROVIDERS: PCP Nurse Practitioner Family; Visit Provider Nurse Practitioner Family
DX: M16.12 Unilateral primary osteoarthritis, left hip (principal); M85.88 Other specified disorders of bone density and structure, other site
CPT/HCPCS: 73700

== ENCOUNTER → 2024-08-08 09:33 | Outpatient (BNVA) | payer MEDICARE, SELFPAY | PROVIDERS: PCP Nurse Practitioner Family; Visit Provider Internal Medicine Cardiovascular Disease | DX: Z45.09 Encounter for adjustment and management of other cardiac device (principal) | CPT/HCPCS: 93298 ==

== ENCOUNTER → 2024-09-12 10:22 | Outpatient (BNVA) | payer MEDICARE, SELFPAY | PROVIDERS: PCP Nurse Practitioner Family; Visit Provider Internal Medicine Cardiovascular Disease | DX: Z45.09 Encounter for adjustment and management of other cardiac device (principal) | CPT/HCPCS: 93298 ==

== ENCOUNTER → 2024-10-31 09:46 | Outpatient (BNVA) | payer MEDICARE, SELFPAY | PROVIDERS: PCP Nurse Practitioner Family; Visit Provider Internal Medicine Cardiovascular Disease | DX: Z45.09 Encounter for adjustment and management of other cardiac device (principal) | CPT/HCPCS: 93298 ==

== ENCOUNTER → 2024-11-06 09:45 | Outpatient (BNVA) | payer MEDICARE, SELFPAY | PROVIDERS: PCP Nurse Practitioner Family; Visit Provider Nurse Practitioner Family | DX: I48.0 Paroxysmal atrial fibrillation (principal); E78.5 Hyperlipidemia, unspecified; I10 Essential (primary) hypertension; E66.9 Obesity, unspecified; Z68.41 Body mass index [BMI] 40.0-44.9, adult; Z79.01 Long term (current) use of anticoagulants | CPT/HCPCS: 99214 ==

== ENCOUNTER → 2024-12-05 10:09 | Outpatient (BNVA) | payer MEDICARE, SELFPAY | PROVIDERS: PCP Nurse Practitioner Family; Visit Provider Internal Medicine Cardiovascular Disease | DX: Z45.09 Encounter for adjustment and management of other cardiac device (principal) | CPT/HCPCS: 93298 ==

== ENCOUNTER → 2024-12-28 08:28 | Outpatient (BNVA) | payer MEDICARE, SELFPAY | PROVIDERS: PCP Nurse Practitioner Family; Visit Provider Nurse Practitioner Family | DX: Z45.09 Encounter for adjustment and management of other cardiac device (principal) | CPT/HCPCS: 93291 ==

== ENCOUNTER → 2025-02-06 13:14 | Outpatient (BNVA) | payer MEDICARE, SELFPAY | PROVIDERS: PCP Nurse Practitioner Family; Visit Provider Internal Medicine Cardiovascular Disease | DX: Z45.09 Encounter for adjustment and management of other cardiac device (principal) | CPT/HCPCS: 93298 ==

== ENCOUNTER → 2025-04-03 11:38 | Outpatient (BNVA) | payer MEDICARE, SELFPAY | PROVIDERS: PCP Nurse Practitioner Family; Visit Provider Internal Medicine Cardiovascular Disease | DX: Z45.09 Encounter for adjustment and management of other cardiac device (principal) | CPT/HCPCS: 93298 ==

== ENCOUNTER → 2025-05-06 10:50 | Outpatient (BNVA) | payer MEDICARE, SELFPAY | PROVIDERS: PCP Nurse Practitioner Family; Visit Provider Internal Medicine Cardiovascular Disease | DX: Z45.09 Encounter for adjustment and management of other cardiac device (principal) | CPT/HCPCS: 93298 ==